=== PATIENT | male | born 1995 | race Caucasian/White ===

== ENCOUNTER 2020-08-14 19:45 | Emergency (ER) | payer OTHER ==
[~2020-08-14] VITALS: Ht 177.8 cm; Wt 111.1 kg
[2020-08-14 21:04] VITALS: BP 134/65
[2020-08-14] MEDS ORDERED: IOHEXOL 300 MG/ML 100ML BOTTLE IJ ONE (22:50)
[2020-08-15] MEDS ORDERED: MORPHINE SULF INJ 2 MG/ML SYRINGE 1ML IM ONE ×2 (00:30→01:30)
[2020-08-15] MEDS ORDERED: ONDANSETRON HCL 4 MG/2 ML VIAL IM ONE (00:30)
== END 2020-08-15 01:53 | disposition home or self-care (01) ==
LOC: ER 19:45
DX: S16.1XXA Strain of muscle, fascia and tendon at neck level, initial encounter (principal); S20.212A Contusion of left front wall of thorax, initial encounter; M62.838 Other muscle spasm; E66.9 Obesity, unspecified; Z68.35 Body mass index [BMI] 35.0-35.9, adult; V43.52XA Car driver injured in collision with other type car in traffic accident, initial encounter; Y93.89 Activity, other specified; Y92.488 Other paved roadways as the place of occurrence of the external cause; Y99.8 Other external cause status
CPT/HCPCS: 70450; 71250; 72125; 73120; 74176; 96372; 99285; J2270; J2405

== ENCOUNTER 2024-02-05 13:36 | Emergency (ER) | payer BC, OTHER ==
[~2024-02-05] VITALS: Ht 177.8 cm; Wt 132.3 kg
[2024-02-05 17:44] VITALS: BP 120/82; PULSE 106; RESP 16; TEMP 99.6; O2SAT 96
[2024-02-05] MEDS: HYDROcodone-ACET 5/325MG TAB PO ONE (17:56)
[2024-02-05] MEDS: KETOROLAC TROMETH 60MG/2ML VIAL IM ONE (17:57)
[2024-02-05] MEDS ORDERED: HYDR-4902 PO (18:04)
== END 2024-02-05 18:31 | disposition home or self-care (01) ==
LOC: ER 13:36
DX: S92.312A Displaced fracture of first metatarsal bone, left foot, initial encounter for closed fracture (principal); W20.8XXA Other cause of strike by thrown, projected or falling object, initial encounter; Y93.89 Activity, other specified; Y92.89 Other specified places as the place of occurrence of the external cause; Y99.8 Other external cause status
CPT/HCPCS: 29515; 73630; 96372; 99283; J1885

== ENCOUNTER 2024-02-22 14:09 | Inpatient (IN) | payer BC ==
[~2024-02-22] VITALS: Ht 180.3 cm; Wt 125.5 kg
[~2024-02-22 14:09] MED LIST: HYDR-4902 PO
[2024-02-22 15:44] VITALS: RESP 20; O2SAT 96
[2024-02-22 15:51] LABS: Basophils # (auto) 0 10 ^3/uL (0-0.2); Basophils % (auto) 0.5 % (0.0-2.0); Eosinophils # (auto) 0 10 ^3/uL (0-0.8); Eosinophils % (auto) 0.5 % (0.0-7.0); Hemoglobin 13.9 g/dL (13.5-17.5); Lymphocytes # (auto) 1.6 10 ^3/uL (0.4-5.4); Lymphocytes % (auto) 18.3 % (10.0-50.0); Mean Corpuscular Hgb Conc. 33.1 g/dL (32.0-36.0); Mean Corpuscular Volume 84.8 fL (80.0-100.0); Monocytes # (auto) 0.4 10 ^3/uL (0-1.3); Monocytes % (auto) 4.8 % (0.0-12.0); Neutrophils # (auto) 6.6 10 ^3/uL (1.6-8.6); Neutrophils % (auto) 75.9 % (37.0-80.0); Nucleated Red Blood Cells % 0.1 %; Red Blood Cells 4.96 10^6/uL (4.5-5.90); Red Cell Distribution Width 13.7 % (11.8-14.3); White Blood Cell 8.7 10^3/uL (4.4-10.8)
[2024-02-22] MEDS: HYDROcodone-ACET 10/325MG TAB PO ONE (15:54)
[2024-02-22] MEDS: ONDANSETRON HCL 4 MG/2 ML VIAL IV ONE (15:54)
[2024-02-22 16:01] LABS: Chloride 107 mmol/L (98-107); Potassium 3.9 mmol/L (3.5-5.1); Sodium 139 mmol/L (136-145)
[2024-02-22 16:02] LABS: Anion Gap 6 (5-15); Calcium 9.8 mg/dL (8.5-10.1); Carbon Dioxide 26 mmol/L (20-30)
[2024-02-22 16:07] LABS: BUN/Creatinine Ratio 10.9 (10.0-20.0); Blood Urea Nitrogen 10 mg/dL (9-23); Glucose 107 mg/dL (74-106)
[2024-02-22 16:13] LABS: INR 1.03 (0.9-1.15); Partial Thromboplastin Time 30.5 SEC (24.5-34.5); Prothrombin Time 10.9 sec (9.3-11.8)
[2024-02-22] MEDS ORDERED: ACETAMINOPHEN 325 MG TAB PO PRN (18:30)
[2024-02-22] MEDS: MORPHINE SULFATE INJ 2 MG/ml SYRG IV PRN (21:00)
[2024-02-23] VITALS (7 sets, daily range): BP systolic 115–128; BP diastolic 66–74; PULSE 67–100; RESP 18; TEMP 97.4–98.2; O2SAT 94–100
[2024-02-23] MEDS: HYDROcodone-ACET 5/325MG TAB PO PRN (01:37)
[2024-02-23 07:09] LABS: Alanine Aminotransferase 81 U/L (7-40); Albumin 4.4 g/dL (3.2-4.8); Alkaline Phosphatase 66 U/L (46-116); Anion Gap 7 (5-15); Aspartate Aminotransferase 25 U/L (13-40); BUN/Creatinine Ratio 9.7 (10.0-20.0); Bilirubin, Total 0.4 mg/dL (0.2-1.0); Blood Urea Nitrogen 9 mg/dL (9-23); Calcium 9.8 mg/dL (8.5-10.1); Carbon Dioxide 27 mmol/L (20-30); Chloride 105 mmol/L (98-107); Glucose 88 mg/dL (74-106); Potassium 3.9 mmol/L (3.5-5.1); Sodium 139 mmol/L (136-145); Total Protein 7.2 g/dL (5.7-8.2)
[2024-02-23 07:34] LABS: Basophils # (auto) 0 10 ^3/uL (0-0.2); Basophils % (auto) 0.4 % (0.0-2.0); Eosinophils # (auto) 0.1 10 ^3/uL (0-0.8); Eosinophils % (auto) 1.2 % (0.0-7.0); Hematocrit 40.6 % (41.0-53.0); Hemoglobin 13.8 g/dL (13.5-17.5); Lymphocytes # (auto) 2.3 10 ^3/uL (0.4-5.4); Lymphocytes % (auto) 26.9 % (10.0-50.0); Mean Corpuscular Hemoglobin 28.8 pg (28.0-32.0); Mean Corpuscular Hgb Conc. 33.9 g/dL (32.0-36.0); Mean Corpuscular Volume 84.8 fL (80.0-100.0); Monocytes # (auto) 0.5 10 ^3/uL (0-1.3); Monocytes % (auto) 6.4 % (0.0-12.0); Neutrophils # (auto) 5.5 10 ^3/uL (1.6-8.6); Neutrophils % (auto) 65.1 % (37.0-80.0); Nucleated Red Blood Cells % 0.1 %; Red Blood Cells 4.79 10^6/uL (4.5-5.90); Red Cell Distribution Width 14.1 % (11.8-14.3); White Blood Cell 8.5 10^3/uL (4.4-10.8)
[2024-02-23] MEDS: ceFAZolin 2 GM/D5W50ml 50 ML IV ONE (11:11)
[2024-02-23 11:31] LABS: CRP High Sensitivity 0.75 mg/dL (<1.0)
[2024-02-23] MEDS: BUPIVACAINE 0.5% MPF INJ 30ML SDV IJ ONE (11:34)
[2024-02-23] MEDS: LIDOCAINE 1% HCL (LOCAL ANESTH.) INJ 20ML MDV ONE (11:34)
[2024-02-23] MEDS ORDERED: MIDAZOLAM HCL 2MG/2ML 2ml VIAL (1mg/ml) ONE (11:49)
[2024-02-23] MEDS ORDERED: fentaNYL CITRATE 100 MCG/2 ML VL ONE (11:49)
[2024-02-23] MEDS: SUCCINYLCHOLINE CHLORIDE 20 MG/ML 10ML VIAL IV ONE (11:52)
[2024-02-23] MEDS: ONDANSETRON HCL 4 MG/2 ML VIAL IV ONE (14:15)
[2024-02-23] MEDS ORDERED: HYDROmorphone HCL 2 MG/ML VL/or syr IV PRN (14:15)
[2024-02-23] MEDS: HYDROmorphone HCL 2 MG/ML VL/or syr IV PRN (14:36)
[2024-02-23] MEDS: ONDANSETRON HCL 4 MG/2 ML VIAL IV PRN (17:11)
[2024-02-24] VITALS (7 sets, daily range): BP systolic 110–132; BP diastolic 63–79; PULSE 71–103; RESP 16–18; TEMP 97.4–98.6; O2SAT 97–98
[2024-02-24] MEDS: ACETAMINOPHEN 325 MG TAB PO PRN (04:13)
[2024-02-24 07:17] LABS: Basophils # (auto) 0 10 ^3/uL (0-0.2); Basophils % (auto) 0.3 % (0.0-2.0); Eosinophils # (auto) 0.1 10 ^3/uL (0-0.8); Eosinophils % (auto) 0.5 % (0.0-7.0); Hematocrit 39.1 % (41.0-53.0); Hemoglobin 13.4 g/dL (13.5-17.5); Lymphocytes # (auto) 1.7 10 ^3/uL (0.4-5.4); Lymphocytes % (auto) 15.9 % (10.0-50.0); Mean Corpuscular Hemoglobin 28.9 pg (28.0-32.0); Mean Corpuscular Hgb Conc. 34.2 g/dL (32.0-36.0); Mean Corpuscular Volume 84.6 fL (80.0-100.0); Monocytes # (auto) 0.7 10 ^3/uL (0-1.3); Monocytes % (auto) 6.5 % (0.0-12.0); Neutrophils # (auto) 8.1 10 ^3/uL (1.6-8.6); Neutrophils % (auto) 76.8 % (37.0-80.0); Red Blood Cells 4.63 10^6/uL (4.5-5.90); Red Cell Distribution Width 13.9 % (11.8-14.3); White Blood Cell 10.5 10^3/uL (4.4-10.8)
[2024-02-24 07:53] LABS: Alanine Aminotransferase 85 U/L (7-40); Alkaline Phosphatase 68 U/L (46-116); Anion Gap 8 (5-15); Aspartate Aminotransferase 26 U/L (13-40); BUN/Creatinine Ratio 7.4 (10.0-20.0); Blood Urea Nitrogen 7 mg/dL (9-23); Calcium 9.8 mg/dL (8.5-10.1); Carbon Dioxide 25 mmol/L (20-30); Chloride 104 mmol/L (98-107); Glucose 103 mg/dL (74-106); Magnesium 1.9 mg/dL (1.6-2.6); Potassium 3.9 mmol/L (3.5-5.1); Sodium 137 mmol/L (136-145)
[2024-02-24 07:54] LABS: Albumin 4.4 g/dL (3.2-4.8); Bilirubin, Total 0.5 mg/dL (0.2-1.0); Total Protein 7.4 g/dL (5.7-8.2)
[2024-02-24] MEDS: ceFAZolin 1GM/50ML 50 ML IV SCH (13:59)
[2024-02-25 01:00] VITALS: BP 134/73; PULSE 75; RESP 18; TEMP 97.7; O2SAT 96
[2024-02-25 05:00] VITALS: BP 117/75; PULSE 74; RESP 18; TEMP 98; O2SAT 97
[2024-02-25 08:00] VITALS: PULSE 71
[2024-02-25 08:54] VITALS: BP 128/72; PULSE 76; RESP 16; TEMP 98; O2SAT 98
[2024-02-25] MEDS ORDERED: HYDR-4902 PO (11:02)
[2024-02-25 13:00] VITALS: BP 113/72; PULSE 79; RESP 17; TEMP 97.8; O2SAT 96
[2024-02-25 13:04] VITALS: BP 128/72; PULSE 76; RESP 16; TEMP 98; O2SAT 98
== END 2024-02-25 14:20 | disposition home or self-care (01) | DRG 505 ==
LOC: ER 14:09 → OVERFLOW 18:27 → WEST WING 02-23 02:20
PROVIDERS: ADMIT Internal Medicine Pulmonary Disease; ATTEND Internal Medicine Pulmonary Disease
PROC: 0QSR04Z Reposition Left Toe Phalanx with Internal Fixation Device, Open Approach (ICD-10-PCS; principal; 2024-02-23 11:52)
DX: S92.402A Displaced unspecified fracture of left great toe, initial encounter for closed fracture (principal); E66.01 Morbid (severe) obesity due to excess calories; W20.8XXA Other cause of strike by thrown, projected or falling object, initial encounter; Z68.38 Body mass index [BMI] 38.0-38.9, adult; Q84.6 Other congenital malformations of nails; Y93.89 Activity, other specified; Y92.89 Other specified places as the place of occurrence of the external cause; Y99.8 Other external cause status
CPT/HCPCS: 36415; 73660; 73700; 76000; 80048; 80053; 80061; 83735; 84443; 85025; 85610; 85730; 86141; 96374; G0378; J0330; J2001; J2250; J2405; J3490